=== PATIENT | male | born 1935 | race Caucasian/White ===

== ENCOUNTER → 2020-02-05 | Outpatient (CLI) | payer OTHER ==
[~2020-02-05] MED LIST: AMIODARONE HCL400 MG PO; CREON DR 6,0001 EACH PO; DUTASTERIDE0.5 MG PO; FLOMAX0.4 MG PO; IRON325 M1 PO; JANTOVEN10 MG PO; JANTOVEN7.5 MG PO; LEVOXYL137 MCG PO; PLAQUENIL200 MG PO; PRIMIDONE 250M250 MG PO; PROZAC10 M1 PO
== END ==
LOC: M.PC 07:30
PROVIDERS: ATTEND Physical Medicine & Rehabilitation
DX: M47.26 Other spondylosis with radiculopathy, lumbar region (principal); M51.16 Intervertebral disc disorders with radiculopathy, lumbar region; M48.062 Spinal stenosis, lumbar region with neurogenic claudication; M79.605 Pain in left leg

== ENCOUNTER → 2020-02-19 | Outpatient (CLI) | payer OTHER ==
[~2020-02-19] MED LIST changes: +ASA81BEC PO; +JANTOVEN5 MG PO; -JANTOVEN7.5 MG PO; +TYLENOL 3 PO
== END ==
LOC: M.PC 09:50
PROVIDERS: ATTEND Physical Medicine & Rehabilitation
DX: M51.16 Intervertebral disc disorders with radiculopathy, lumbar region (principal); M47.26 Other spondylosis with radiculopathy, lumbar region; M48.062 Spinal stenosis, lumbar region with neurogenic claudication; I48.91 Unspecified atrial fibrillation

== ENCOUNTER → 2020-05-13 | Outpatient (CLI) | payer OTHER | LOC: M.PC 08:18 | PROVIDERS: ATTEND Physical Medicine & Rehabilitation | DX: M51.16 Intervertebral disc disorders with radiculopathy, lumbar region (principal); M47.26 Other spondylosis with radiculopathy, lumbar region; M48.061 Spinal stenosis, lumbar region without neurogenic claudication ==

== ENCOUNTER → 2020-07-06 | Outpatient (CLI) | payer OTHER | LOC: M.PC 10:11 | PROVIDERS: ATTEND Physical Medicine & Rehabilitation | DX: M47.26 Other spondylosis with radiculopathy, lumbar region (principal); M48.061 Spinal stenosis, lumbar region without neurogenic claudication; I48.91 Unspecified atrial fibrillation; Z86.73 Personal history of transient ischemic attack (TIA), and cerebral infarction without residual deficits; Z79.01 Long term (current) use of anticoagulants; Z79.899 Other long term (current) drug therapy ==